=== PATIENT | male | born 1965 | race American Indian/Alaskan Native ===

== ENCOUNTER 2024-03-22 06:01 | Day surgery (SDC) | payer MEDICAID ==
[2024-03-12 16:21] LABS: BASOPHILS % (AUTO) 0.6 % (0-1); EOSINOPHILS # (AUTO) 0.2 X10'3 (0-0.9); EOSINOPHILS % (AUTO) 5.3 % (0-6); LYMPHOCYTES # (AUTO) 1.8 X10'3 (1.1-4.8); LYMPHOCYTES % (AUTO) 44.1 % (21-51); MEAN CORPUSCULAR HEMOGLOBIN 31.4 PG (27.0-31.0); MEAN CORPUSCULAR HGB CONC 33.6 g/dL (33.0-36.5); MEAN CORPUSCULAR VOLUME 93.4 FL (78-98); MONOCYTES # (AUTO) 0.4 X10'3 (0-0.9); MONOCYTES % (AUTO) 10.2 % (2-12); NEUTROPHILS # (AUTO) 1.6 X10'3 (1.8-7.7); NEUTROPHILS % (AUTO) 39.8 % (42-75); PRE OP HEMOGLOBIN 13.1 g/dL (14.0-17.9); PRE OP PLATELET COUNT 112 X10'3 (140-440); PRE OP WHITE BLOOD COUNT 4.1 10'3 (4.8-10.8); RED BLOOD COUNT 4.18 X10'6 (4.70-6.10)
[2024-03-12 16:38] LABS: ALBUMIN 3.2 G/DL (3.4-5.0); ALBUMIN/GLOBULIN RATIO 0.7 (1.1-1.5); ALKALINE PHOSPHATASE 367 IU/L (46-116); BLOOD UREA NITROGEN 12 MG/DL (7-18); BUN/CREATININE RATIO 14.5 (10.0-20.0); CALCIUM 8.6 MG/DL (8.5-10.1); CHLORIDE 107 MMOL/L (99-107); CREATININE 0.83 MG/DL (0.60-1.10); PRE OP ALT 34 U/L (30-65); PRE OP ANION GAP 10 (8-16); PRE OP AST 36 U/L (10-37); PRE OP BILIRUB, TOTAL 0.4 MG/DL (0.0-1.0); PRE OP GLUCOSE 108 MG/DL (70-104); PRE OP SODIUM 142 MMOL/L (135-145); TOTAL CARBON DIOXIDE 25.5 MMOL/L (24-32); eGFR > 90 ML/MIN
[2024-03-12 16:46] LABS: PRE OP POTASSIUM 3.3 MMOL/L (3.4-5.1)
[2024-03-12 18:26] LABS: BILIRUBIN,URINE NEGATIVE (Neg); CLARITY,URINE CLEAR (Clear); COLOR,URINE YELLOW (Yellow); GLUCOSE, URINE NEGATIVE (Neg); KETONES,URINE NEGATIVE (Neg); LEUKOCYTE ESTERASE ,URINE NEGATIVE (Neg); NITRITES, URINE NEGATIVE (Neg); OCCULT BLOOD,URINE NEGATIVE (Neg); PROTEIN,URINE NEGATIVE (Neg)
[2024-03-12 18:29] LABS: UA COLLECTION TYPE CLN CATCH MIDSTREAM
[2024-03-22] VITALS (16 sets, daily range): BP systolic 106–124; BP diastolic 65–75; PULSE 45–64; RESP 10–18; TEMP 98; O2SAT 97–100
[~2024-03-22] VITALS: Ht 177.8 cm; Wt 86.8 kg
[2024-03-22] MEDS: cefazolin 2gm/D5W 100mL 100 ML IV ONE (05:30)
[~2024-03-22 06:01] MED LIST: NO HOME MEDS
[2024-03-22] MEDS: famotidine 20mg tablet PO ONE (06:39)
[2024-03-22] MEDS: ringers solution, lacted 1,000 ML IV SCH (06:40)
[2024-03-22 07:21] LABS: ISTAT ANION GAP 12 (8-12); ISTAT BUN 13 mg/dL (7-18); ISTAT CL 111 mmol/L (99-107); ISTAT CREATININE 0.6 mg/dL (0.8-1.3); ISTAT GLUCOSE 98 mg/dL (70-104); ISTAT HGB 12.6 g/dl (14.0-17.9); ISTAT Hct 37 %PCV (42-52); ISTAT IONIZED CALCIUM 1.19 mmol/L (1.03-1.32); ISTAT K 4.1 mmol/L (3.5-5.1); ISTAT NA 144 mmol/L (135-145); ISTAT TOTAL CO2 21 mmol/L (24-32); ISTAT eGFR > 90 ML/MIN; POC BUN/CREATININE RATIO 21.7 (5.4-32.0)
[2024-03-22] MEDS ORDERED: bacitracin 15gm ointment TP ONE (07:23)
[2024-03-22] MEDS ORDERED: BUPIVAcaine/PF 2.5mg/ml (0.25%) 10ml vial ONE (07:24)
[2024-03-22] MEDS ORDERED: cloNIDine hcl/PF 100mcg/ml inj ONE (09:05)
[2024-03-22] MEDS ORDERED: midazolam 1 mg/ML 2ml injection ONE (09:07)
[2024-03-22] MEDS ORDERED: fentaNYL/PF 50MCG/1 ML 2ML syringe ONE (09:07)
[2024-03-22] MEDS ORDERED: propofol inj 20 ML IV ONE (09:07)
[2024-03-22] MEDS ORDERED: sevoflurane 250ml liquid IH ONE (09:08)
[2024-03-22] MEDS ORDERED: meperidine/PF 25mg/ml syringe IV PRN ×3 (10:20)
[2024-03-22] MEDS ORDERED: morphine 2 MG/ML inj. syringe IV PRN (10:20)
[2024-03-22] MEDS ORDERED: proCHLORperazine 10 MG/2 ml inj IV PRN (10:20)
[2024-03-22] MEDS ORDERED: ondansetron/PF 4mg/2ml inj IV PRN (10:20)
[2024-03-22] MEDS ORDERED: ringers solution, lacted 1,000 ML IV SCH (10:20)
[2024-03-22] MEDS ORDERED: morphine 4 MG/ML inj SYRINge IV PRN (10:20)
[2024-03-22] MEDS ORDERED: dexamethasone sod phosphate 4mg/ml inj. ONE (10:25)
[2024-03-22] MEDS ORDERED: ROPIVAcaine 0.5% (5mg/ml) 30ml vial ONE (10:26)
== END 2024-03-22 13:08 | disposition home or self-care (01) ==
LOC: PAS 06:01
PROVIDERS: ATTEND Podiatrist Foot & Ankle Surgery
DX: M20.22 Hallux rigidus, left foot (principal); G89.18 Other acute postprocedural pain; Z86.73 Personal history of transient ischemic attack (TIA), and cerebral infarction without residual deficits; Z79.899 Other long term (current) drug therapy
CPT/HCPCS: 28750; 36415; 64445; 64447; 73620; 80047; 80053; 81003; 82948; 85025; 93005; A6223; C1713; J0690; J0735; J1100; J2250; J2405; J2704; J2795; J3010; J7030; J7120; Z7506; Z7508; Z7512; 76000; A4215; A4618; A6449; A7000; J3490